=== PATIENT | female | born 1950 | race Caucasian/White ===

== ENCOUNTER 2020-01-01 08:46 | Day surgery (SDC) | payer MEDICARE, OTHER ==
[~2020-01-01 08:46] MED LIST: CHONDR SU A NA/HYALUR INTRAOC KIT (SURGICARE) ONE; DORZOLAMIDE HCL 2%/TIMOLOL MALEAT 0.5% OPH SOLN 10 ML OS PRN; EPINEPHRINE INJ/PF 1 MG/1 ML AMPULE ONE; KETOROLAC TROMETHAMINE 0.45% 4 DROP/0.4 ML DROPERETTE OS PRN; LIDOCAINE 1%/PHENYLEPHRINE 1.5% 1 ML VIAL ONE; PREDNISOLONE ACETATE 1% OPH SUSP 5 ML OS PRN
[2020-01-01] MEDS: TETRACAINE HCL 0.5% OPH SOLN 4 ML OS PRN ×3 (09:04→09:29)
[2020-01-01] MEDS: TROPICAMIDE 1% OPH SOLN 15 ML OS PRN ×3 (09:05→09:24)
[2020-01-01] MEDS: CYCLOPENTOLATE 0.2%/PHENYLEPHRINE 1% OPH SOLN 2 ML OS PRN ×3 (09:05→09:24)
[2020-01-01] MEDS: BESIFLOXACIN HCL 0.6% OPH SUSP 5 ML BOTTLE OS PRN ×3 (09:05→09:47)
[2020-01-01] MEDS ORDERED: FENTANYL CITRATE INJ/PF 100 MCG/2 ML AMPUL ONE (09:13)
[2020-01-01] MEDS ORDERED: MIDAZOLAM 2 MG/2 ML INJ ONE (09:13)
--- NOTE | 2020-01-01 13:40 | Operative Report ---
Operative Report-[facility] Operative Report: DATE OF SURGERY: January 01, 2020 PREOPERATIVE DIAGNOSIS: NUCLEAR CATARACT, LEFT EYE. POSTOPERATIVE DIAGNOSIS: NUCLEAR CATARACT, LEFT EYE. PROCEDURE PERFORMED: PHACOEMULSIFICATION WITH POSTERIOR CHAMBER INTRAOCULAR LENS IMPLANT, LEFT EYE. SURGEON: Lincoln Nava DO MEDICATIONS AND ANESTHESIA: Versed: IV Versed Tetracaine drops: 1 to 2 drops given as needed COMPLICATION: None INDICATIONS FOR SURGERY: Medical necessity: Best corrected visual acuity worse than 20/40 secondary to cataracts with impairment of ability to carry out needs or desired activities, blurred vision, visual distortion, reduced contrast sensitivity and/or glare with association functional impairment and supporting documentation/testing, and cataracts causing symptomatic impairment of visual functions not corrected with tolerable changes in glasses or contact lenses interfering with activities of daily life. PROCEDURE: Consent: The risks, benefits and alternatives of this procedures was discussed with the patient. The patient read and signed the consent forms, was identified and was seated in the exam chair. IOL: ZXR00 22.5 IOL Diopters: Phacoemulsification with posterior chamber intraocular lens implant: The face was prepped with 5% povidone iodine solution, and a few drops of 5% povidone iodine solution was instilled into the inferior fornix. A non-fenestrated drape was placed over the eye and the lids were parted with the speculum. A paracentesis was made with a 15 degree blade, and 1% lidocaine MPF followed by viscoelastic was injected into the anterior chamber. A 2.4 mm metal micro- keratome was used to create a temporal clear corneal incision. A circular anterior capsulorrhexis was created, followed by hydro-dissection and hydro- delineation. The phacoemulsification hand piece was inserted and the nucleus was removed with the Phaco chop technique. The irrigation-aspiration hand piece was used to remove the residual cortex, and vacuum the posterior capsule. The capsular bag was inflated and viscoelastic and the above-mentioned IOL was injected into the eye with care to insert both leaning and trailing haptics in the capsular bag. The irrigation/aspiration hand piece was reinserted to remove residual viscoelastic from the capsular bag and anterior chamber. The corneal incision was hydrated, and anterior chamber was inflated with sterile BSS via the paracentesis site, and found to be watertight. Postop medication:1 drop of prednisolone into operative by followed by 1 drop of Cosopt into operative eye followed by 1 drop of Besivance intraoperative by Other:
== END 2020-01-01 10:25 | disposition home or self-care (01) ==
LOC: SC 08:46
PROVIDERS: ATTEND Ophthalmology
DX: H25.12 Age-related nuclear cataract, left eye (principal); Z87.891 Personal history of nicotine dependence
CPT/HCPCS: 66984; J2250; J3490 ×2; A9270; J0171; J3010; V2788

== ENCOUNTER 2020-01-15 06:28 | Day surgery (SDC) | payer MEDICARE, OTHER ==
[~2020-01-15 06:28] MED LIST changes: -CHONDR SU A NA/HYALUR INTRAOC KIT (SURGICARE) ONE; -DORZOLAMIDE HCL 2%/TIMOLOL MALEAT 0.5% OPH SOLN 10 ML OS PRN; -EPINEPHRINE INJ/PF 1 MG/1 ML AMPULE ONE; +KETOROLAC TROMETHAMINE 0.45% 4 DROP/0.4 ML DROPERETTE OD PRN; -KETOROLAC TROMETHAMINE 0.45% 4 DROP/0.4 ML DROPERETTE OS PRN; -LIDOCAINE 1%/PHENYLEPHRINE 1.5% 1 ML VIAL ONE; -PREDNISOLONE ACETATE 1% OPH SUSP 5 ML OS PRN
[2020-01-15] MEDS: TETRACAINE HCL 0.5% OPH SOLN 4 ML OD PRN ×4 (06:55→07:44)
[2020-01-15] MEDS: TROPICAMIDE 1% OPH SOLN 15 ML OD PRN ×3 (06:55→07:20)
[2020-01-15] MEDS: BESIFLOXACIN HCL 0.6% OPH SUSP 5 ML BOTTLE OD PRN ×4 (06:55→08:05)
[2020-01-15] MEDS: CYCLOPENTOLATE 0.2%/PHENYLEPHRINE 1% OPH SOLN 2 ML OD PRN ×3 (06:55→07:20)
[2020-01-15] MEDS ORDERED: ONDANSETRON HCL INJ/PF 4 MG/2 ML SDV ONE (07:08)
[2020-01-15] MEDS ORDERED: FENTANYL CITRATE INJ/PF 100 MCG/2 ML AMPUL ONE (07:09)
[2020-01-15] MEDS ORDERED: MIDAZOLAM 2 MG/2 ML INJ ONE (07:09)
[2020-01-15] MEDS: LIDOCAINE 1%/PHENYLEPHRINE 1.5% 1 ML VIAL ONE ×2 (07:55)
[2020-01-15] MEDS: CHONDR SU A NA/HYALUR INTRAOC KIT (SURGICARE) ONE ×2 (07:55)
[2020-01-15] MEDS: EPINEPHRINE INJ/PF 1 MG/1 ML AMPULE ONE ×2 (07:55)
[2020-01-15] MEDS: DORZOLAMIDE HCL 2%/TIMOLOL MALEAT 0.5% OPH SOLN 10 ML OD PRN ×2 (08:05)
[2020-01-15] MEDS: PREDNISOLONE ACETATE 1% OPH SUSP 5 ML OD PRN ×2 (08:05)
--- NOTE | 2020-01-15 10:59 | Operative Report ---
Operative Report-[facility] Operative Report: DATE OF SURGERY: January 15, 2020 PREOPERATIVE DIAGNOSIS: NUCLEAR CATARACT, RIGHT EYE. POSTOPERATIVE DIAGNOSIS: NUCLEAR CATARACT, RIGHT EYE. PROCEDURE PERFORMED: PHACOEMULSIFICATION WITH POSTERIOR CHAMBER INTRAOCULAR LENS IMPLANT, RIGHT EYE. SURGEON: Lincoln Nava DO MEDICATIONS AND ANESTHESIA: Versed: IV Versed Tetracaine drops: 1 to 2 drops given as needed COMPLICATION: None INDICATIONS FOR SURGERY: Medical necessity: Best corrected visual acuity worse than 20/40 secondary to cataracts with impairment of ability to carry out needs or desired activities, blurred vision, visual distortion, reduced contrast sensitivity and/or glare with association functional impairment and supporting documentation/testing, and cataracts causing symptomatic impairment of visual functions not corrected with tolerable changes in glasses or contact lenses interfering with activities of daily life. PROCEDURE: Consent: The risks, benefits and alternatives of this procedures was discussed with the patient. The patient read and signed the consent forms, was identified and was seated in the exam chair. IOL: ZXR00 21.5 IOL Diopters: Phacoemulsification with posterior chamber intraocular lens implant: The face was prepped with 5% povidone iodine solution, and a few drops of 5% povidone iodine solution was instilled into the inferior fornix. A non-fenestrated drape was placed over the eye and the lids were parted with the speculum. A paracentesis was made with a 15 degree blade, and 1% lidocaine MPF followed by viscoelastic was injected into the anterior chamber. A 2.4 mm metal micro- keratome was used to create a temporal clear corneal incision. A circular anterior capsulorrhexis was created, followed by hydro-dissection and hydro- delineation. The phacoemulsification hand piece was inserted and the nucleus was removed with the Phaco chop technique. The irrigation-aspiration hand piece was used to remove the residual cortex, and vacuum the posterior capsule. The capsular bag was inflated and viscoelastic and the above-mentioned IOL was injected into the eye with care to insert both leaning and trailing haptics in the capsular bag. The irrigation/aspiration hand piece was reinserted to remove residual viscoelastic from the capsular bag and anterior chamber. The corneal incision was hydrated, and anterior chamber was inflated with sterile BSS via the paracentesis site, and found to be watertight. Postop medication: 1 drop of prednisolone into operative by followed by 1 drop of Cosopt into operative eye followed by 1 drop of Besivance intraoperative by other:
--- OUTSIDE RECORDS SUMMARY | 2020-01-16 17:52 | XMS REPORT ---
:1950 [facility] [id number] [place] [address] Care Team Providers Name Role Phone Bridgette Soni Primary Care Physician Unavailable Radha BERGERON, FACC, FHRS Attending Clinician Unavailable GYPSY Soni Attending Clinician Unavailable Allergies, Adverse Reactions, Alerts Allergy Name Allergy Status Severity Reaction(s) Onset Inactive Treat ing Comments Type Date Date Clinician Penicillins Penicillins Active Sulfa Drugs Sulfa Drugs Active Sulfa Drug Active Antibiotics Allergy Penicillin Drug Active Allergy Medications Ordered Filled Start Stop Current Ordering Indication Dosage Frequency Signature Comments Components Medication Medication Date Date Medication? Clinician (SIG) Name Name Administer Yes .5ml Administer 0.5 ml 7-22 0.5 ml intramuscul 00:00: intramuscu juan one 00 larly one time time ALPRAZolam 0 Yes .5 ALPRAZolam 0.5 MG Oral 4-26 0.5 MG Tablet 00:00: Oral 00 Tablet TAKE 0.5 TABLET Other NEEDED Refills: 0 Start : 9Active Levothyroxi 2018-0 Yes 1 QD Levothyrox ne Sodium 4-22 ine Sodium 50 MCG Oral 00:00: 50 MCG Tablet 00 Oral Tablet TAKE 1 TABLET DAILY. Refills: 0 Start : 9Active Advil 200 2019-0 Yes 1 Q0.5D Advil 200 MG Oral 4-22 MG Oral Capsule 00:00: Capsule 00 TAKE 1 CAPSULE TWICE DAILY NEEDED FOR PAIN Refills: 0 Start : 9Active Liothyronin 2018-0 Yes 1 Q0.5D Liothyroni e Sodium 25 4-22 ne Sodium MCG Oral 00:00: 25 MCG Tablet 00 Oral Tablet TAKE 1 TABLET TWICE DAILY Refills: 0 Start : 9Active Flecainide 2018-0 Yes Cele Q12H Flecainide Acetate 100 4-15 Radha BERGERON, Acetate MG Oral 00:00: ABDIRAHMAN SANTANA 100 MG Tablet 00 Oral Tablet TAKE 1 TABLET EVERY 12 HOURS DAILY. Quantity: 180 Refills: 3 Radha BERGERON, MAX, CAROCele Start : 9Active Administer Yes .5ml Administer 0.5 ml 4-10 0.5 ml intramuscul 00:00: intramuscu juan one 00 larly one time at 0 time at 0 and 3 and 3 months months Administer Yes Administer 0.65mL 2-12 0.65mL vaccine 00:00: vaccine subcutaneou 00 subcutaneo sly one usly one time. time. Administer Yes .5ml Administer 0.5 ml 2-12 0.5 ml intramuscul 00:00: intramuscu juan one 00 larly one time time Insert 1 Yes Insert 1 gm. 9-13 gm. vaginally 00:00: vaginally qhs for 2 00 qhs for 2 weeks, then weeks, 1/2 - 1 gm. then 1/2 - 2 times 1 gm. 2 weekly or times as needed. weekly or as needed. administer Yes administer 0.65mL 9-08 0.65mL subcutaneou 00:00: subcutaneo sly one 00 usly one time time Ibuprofen Yes 200 MG Oral 9-08 Tablet 00:00: 00 TAKE 1 Yes Tablet TAKE 1 TABLET BY 5-23 TABLET BY MOUTH TWICE 00:00: MOUTH A DAY 00 TWICE A DAY TAKE 1 Yes Tablet TAKE 1 TABLET BY 5-23 TABLET BY MOUTH EVERY 00:00: MOUTH DAY 00 EVERY DAY Liothyronin 2014-03 Yes e Sodium 25 0-26 MCG Oral 00:00: Tablet 00 Levothyroxi 2014-03 Yes ne Sodium 0-26 50 MCG Oral 00:00: Tablet 00 Xanax 0.5 2014-03 Yes MG Oral 0-26 Tablet 00:00: 00 Problems Condition Condition Condition Status Onset Resolution Last Treatin g Comments Name Details Category Date Date Treatment Clinician Date Osteopenia Osteopenia Problem Active 7-22 00:00: 00 Other Other Problem Active specified specified 4-10 anxiety anxiety 00:00: disorders disorders 00 Unspecified Unspecified Problem Active atrial atrial 4-10 fibrillatio fibrillatio 00:00: n n 00 Elevated Elevated Problem Active Liver Liver 3-19 function function 00:00: test test 00 Encounter Encounter Problem Active for general for general 2-12 adult adult 00:00: medical medical 00 examination examination without without abnormal abnormal findings findings Encounter Encounter Problem Active for for 2-12 screening screening 00:00: for lipoid for lipoid 00 disorders disorders Abnormal Abnormal Problem Active results of results of 11-16 thyroid thyroid 00:00: function function 00 studies studies Hypothyroid Hypothyroid Problem Active ism, ism, 11-11 unspecified unspecified 00:00: 00 Vitamin D Vitamin D Problem Active deficiency, deficiency, 11-11 unspecified unspecified 00:00: 00 medicare medicare Problem Active wellness wellness 11-11 00:00: 00 Other Other Problem Active specified specified 11-11 disorders disorders 00:00: of bone of bone 00 density and density and structure, structure, unspecified unspecified site site adult adult Problem Active physical physical 11-11 00:00: 00 Decreased Decreased Problem Active 2014-03 white blood white blood 0-28 cell count, cell count, 00:00: unspecified unspecified 00 hypothyroid hypothyroid Problem Active 2014-03 0 00:00: 00 Other Other Problem Active 2014-03 specified specified 0-28 disorders disorders 00:00: of bone of bone 00 density and density and structure, structure, unspecified unspecified site site adult adult Problem Active 2014-03 physical physical 0-28 00:00: 00 screen screen Problem Active 2014-03 cholesterol cholesterol 0-28 00:00: 00 screen screen Problem Active 2014-03 glucose glucose 0-28 00:00: 00 hypothyroid hypothyroid Problem Active 2014-03 ism ism 0-26 00:00: 00 situational situational Problem Active 2014-03 anxiety anxiety 0- 00:00: 00 Typical Typical Problem Active atrial atrial flutter flutter A-fib A-fib Problem Active Persistent Persistent Problem Active atrial atrial fibrillatio fibrillatio n n Atrial Atrial Problem Active flutter flutter Procedures Procedure Date / Time Performed Performing Clinician Devic e EKG 2019-12-25 00:00:00 bone density 2019-10-18 00:00:00 established, preventive 2019-09-25 00:00:00 GYPSY Soni Joanne medicare wellness 2019-09-25 00:00:00 GYPSY Soni Joanne annual depression evaluation 2019-09-25 00:00:00 GYPSY Soni Jo anne advanced planning 2019-09-25 00:00:00 GYPSY Soni Joanne urine reagent strip 2019-09-25 00:00:00 ANTHONY SoniN, Bridgette venipuncture 2019-09-25 00:00:00 GYPSY Soni Joanne established preventive 2018-06-13 00:00:00 GYPSY Soni Joanne medicare wellness 2018-06-13 00:00:00 GYPSY Soni, Bridgette annual depression evaluation 2018-06-13 00:00:00 GYPSY Soni Jo anne urine reagent 2018-06-13 00:00:00 GYPSY Soni Joanne EKG/interpretation 2018-06-13 00:00:00 GYPSY Soni Joanne venipuncture 2018-06-13 00:00:00 GYPSY Soni Joanne venipuncture 2017-05-22 00:00:00 GYPSY Soni Joanne established, preventive 2017-04-17 00:00:00 GYPSY Soni Joanne medicare wellness 2017-04-17 00:00:00 GYPSY Soni Joanne urine dipstick 2017-04-17 00:00:00 GYPSY Soni Joanne established, low 2015-11-17 00:00:00 NaeGYPSY rubio Joanne venipuncture 2015-11-17 00:00:00 GYPSY Soni Joanne established, preventive 2015-11-12 00:00:00 NaeGYPSY rubio Joanne medicare annual wellness 2015-11-12 00:00:00 GYPSY Soni Joanne urine dipstick 2015-11-12 00:00:00 GYPSY Soni Joanne pap, medicare 2015-11-12 00:00:00 NaeGYPSY rubio Joanne venipuncture 2015-11-12 00:00:00 GYPSY Soni Joanne venipuncture 2014-12-31 00:00:00 GYPSY Soni Joanne new, straightforward 2014-12-29 00:00:00 GYPSY Soni Joanne History of Cardiac catheterization History of Cardioversion History of Tonsillectomy with adenoidectomy History of Open reduction-internal fixation Results Test Description Test Time Test Comments Text Results Atomic Results Result Comments Albumin 2019-09-25 00:00:00 Test Item Value Reference Range Comments Albumin (test code = 1751-7) 4.3 g/dL Vkljhxcv0325-26-24 00:00:00 Test Item Value Reference Range Comments Globulin (test code = 64736-5) 2.3 g/dL Otxzsaxdt0006-30-34 00:00:00 Test Item Value Reference Range Comments Bilirubin (test code = 1975-2) 0.4 mg/dL Albumin/Qbbcvmqw7183-06-98 00:00:00 Test Item Value Reference Range Comments Albumin/Globulin (test code = 1759-0) 1.9 Pcnzlnm6192-13-26 00:00:00 Test Item Value Reference Range Comments Calcium (test code = 12608-0) 9.3 mg/dL Dvciipk1164-57-28 00:00:00 Test Item Value Reference Range Comments Protein (test code = 2885-2) 6.6 g/dL Wpjlautq4396-58-13 00:00:00 Test Item Value Reference Range Comments Chloride (test code = 2075-0) 101 mmol/L Carbon swfcdyp2459-28-50 00:00:00 Test Item Value Reference Range Comments Carbon dioxide (test code = 2028-9) 26 mmol/L Jqamxo3276-51-41 00:00:00 Test Item Value Reference Range Comments Sodium (test code = 2951-2) 142 mmol/L Ajznbjwrl2068-58-46 00:00:00 Test Item Value Reference Range Comments Potassium (test code = 2823-3) 4.8 mmol/L Ltmlxkjtxpp8079-50-33 00:00:00 Test Item Value Reference Range Comments Cholesterol (test code = 2093-3) 199 mg/dL Alanine czdltcrzpksnrcun0725-42-19 00:00:00 Test Item Value Reference Range Comments Alanine aminotransferase (test code = 1742-6) 20 IU/L Alkaline gstuawctuqp8455-94-25 00:00:00 Test Item Value Reference Range Comments Alkaline phosphatase (test code = 6768-6) 93 IU/L Aspartate mahbgkbnylakebst6416-85-66 00:00:00 Test Item Value Reference Range Comments Aspartate aminotransferase (test code = 1920-8) 21 IU/L Cholesterol.total/Cholesterol.in CYG5377-83-73 00:00:00 Test Item Value Reference Range Comments Cholesterol.total/Cholesterol.in HDL (test code = 2.2 ratio 9830-1) Cholesterol.in DPIL1698-94-77 00:00:00 Test Item Value Reference Range Comments Cholesterol.in VLDL (test code = 50967-0) 10 mg/dL Cholesterol.in CVB2643-45-22 00:00:00 Test Item Value Reference Range Comments Cholesterol.in LDL (test code = 35418-7) 97 mg/dL Vlbqzeehbdtx6883-90-61 00:00:00 Test Item Value Reference Range Comments Triglyceride (test code = 2571-8) 50 mg/dL Cholesterol.in BEQ6949-46-75 00:00:00 Test Item Value Reference Range Comments Cholesterol.in HDL (test code = 2085-9) 92 mg/dL Triiodothyronine.wxcb8094-85-01 00:00:00 Test Item Value Reference Range Comments Triiodothyronine.free (test code = 3051-0) 2.9 pg/mL Gamma glutamyl rwnfnxeloax5180-13-50 00:00:00 Test Item Value Reference Range Comments Gamma glutamyl transferase (test code = 2324-2) 12 IU/L Dutwjmjhhkt5518-01-35 00:00:00 Test Item Value Reference Range Comments Thyrotropin (test code = 66047-1) Thyrotropin Thyroxine.mulh5831-47-29 00:00:00 Test Item Value Reference Range Comments Thyroxine.free (test code = 3024-7) 0.65 ng/dL Granulocytes.immature/100 tinuxydvph0545-62-08 00:00:00 Test Item Value Reference Range Comments Granulocytes.immature/100 leukocytes (test code = 0 % 50971-7) Granulocytes.rthiumye6957-42-16 00:00:00 Test Item Value Reference Range Comments Granulocytes.immature (test code = 17062-5) 0.0 x10E3/uL Xpnpilc6641-97-07 00:00:00 Test Item Value Reference Range Comments Glucose (test code = 2345-7) 94 mg/dL Urea hlmqtill0511-27-37 00:00:00 Test Item Value Reference Range Comments Urea nitrogen (test code = 3094-0) 21 mg/dL Zteproebrj6650-44-53 00:00:00 Test Item Value Reference Range Comments Creatinine (test code = 2160-0) 0.61 mg/dL Glomerular filtration rate/1.73 sq M.predicted.tac8393-26-99 00:00:00 Test Item Value Reference Range Comments Glomerular filtration rate/1.73 sq 92 mL/min/1.73 M.predicted.non (test code = 54455-9) Glomerular filtration rate/1.73 sq M.predicted.nkn3503-80-98 00:00:00 Test Item Value Reference Range Comments Glomerular filtration rate/1.73 sq 106 mL/min/1.73 M.predicted.danielle (test code = 01049-9) Urea nitrogen/Pammzvhqhu1194-98-67 00:00:00 Test Item Value Reference Range Comments Urea nitrogen/Creatinine (test code = 3097-3) 34 Cgqatrswcog0383-66-24 00:00:00 Test Item Value Reference Range Comments Lymphocytes (test code = 731-0) 1.5 x10E3/uL Vrgjzcknj7321-95-58 00:00:00 Test Item Value Reference Range Comments Monocytes (test code = 742-7) 0.5 x10E3/uL Nabegibkanx4578-14-91 00:00:00 Test Item Value Reference Range Comments Eosinophils (test code = 711-2) 0.2 x10E3/uL Egwmsutuo7636-43-17 00:00:00 Test Item Value Reference Range Comments Basophils (test code = 704-7) 0.0 x10E3/uL Monocytes/100 zhrfsyugbn1183-38-78 00:00:00 Test Item Value Reference Range Comments Monocytes/100 leukocytes (test code = 5905-5) 10 % Eosinophils/100 rnsmamumtk0909-33-18 00:00:00 Test Item Value Reference Range Comments Eosinophils/100 leukocytes (test code = 713-8) 4 % Basophils/100 ceslvqpnbp7058-86-72 00:00:00 Test Item Value Reference Range Comments Basophils/100 leukocytes (test code = 706-2) 1 % Odfnnypagqx3413-33-98 00:00:00 Test Item Value Reference Range Comments Neutrophils (test code = 751-8) 2.7 x10E3/uL Jahsyjnicp6438-34-46 00:00:00 Test Item Value Reference Range Comments Hematocrit (test code = 4544-3) 39.3 % Erythrocyte mean corpuscular fqjvos6249-84-46 00:00:00 Test Item Value Reference Range Comments Erythrocyte mean corpuscular volume (test code = 91 fL 787-2) Yufrcyoxje6001-65-16 00:00:00 Test Item Value Reference Range Comments Leukocytes (test code = 6690-2) 4.9 x10E3/uL Zfmnyfftfxse9670-08-59 00:00:00 Test Item Value Reference Range Comments Erythrocytes (test code = 789-8) 4.32 x10E6/uL Uyeeljctyo1512-73-76 00:00:00 Test Item Value Reference Range Comments Hemoglobin (test code = 718-7) 13.2 g/dL Neutrophils/100 brnppenuol3375-59-87 00:00:00 Test Item Value Reference Range Comments Neutrophils/100 leukocytes (test code = 770-8) 54 % Lymphocytes/100 xwhgipmbft6687-30-26 00:00:00 Test Item Value Reference Range Comments Lymphocytes/100 leukocytes (test code = 736-9) 31 % Erythrocyte distribution qlcsw2432-28-15 00:00:00 Test Item Value Reference Range Comments Erythrocyte distribution width (test code = 788-0) 11.5 % Aedrgnlcn9391-59-80 00:00:00 Test Item Value Reference Range Comments Platelets (test code = 777-3) 197 x10E3/uL Erythrocyte mean corpuscular shjpszbhad9080-49-59 00:00:00 Test Item Value Reference Range Comments Erythrocyte mean corpuscular hemoglobin (test code = 30.6 pg 785-6) Erythrocyte mean corpuscular hemoglobin vgvrqeysek9077-31-20 00:00:00 Test Item Value Reference Range Comments Erythrocyte mean corpuscular hemoglobin concentrat 33.6 g/dL (test code = 786-4) Sndnmmdfj2051-39-15 00:00:00 Test Item Value Reference Range Comments Prolactin (test code = 2842-3) 11.5 ng/mL Qmkjreqer8743-34-19 00:00:00 Test Item Value Reference Range Comments Potassium (test code = 2823-3) 4.7 mmol/L Nymfnm2610-94-90 00:00:00 Test Item Value Reference Range Comments Sodium (test code = 2951-2) 142 mmol/L Bcyexois4059-45-91 00:00:00 Test Item Value Reference Range Comments Chloride (test code = 2075-0) 103 mmol/L Carbon ffhvagq7428-55-80 00:00:00 Test Item Value Reference Range Comments Carbon dioxide (test code = 2028-9) 23 mmol/L Albumin/Rabmydlh1209-46-76 00:00:00 Test Item Value Reference Range Comments Albumin/Globulin (test code = 1759-0) 1.8 Dixgrvyuu0704-61-69 00:00:00 Test Item Value Reference Range Comments Bilirubin (test code = 1975-2) 0.6 mg/dL Emuoisn6958-96-42 00:00:00 Test Item Value Reference Range Comments Albumin (test code = 1751-7) 4.2 g/dL Dtlrzxvs8718-05-57 00:00:00 Test Item Value Reference Range Comments Globulin (test code = 27227-3) 2.3 g/dL Rtihmpo4857-52-61 00:00:00 Test Item Value Reference Range Comments Calcium (test code = 63445-4) 9.3 mg/dL Tmhegwu7313-96-73 00:00:00 Test Item Value Reference Range Comments Protein (test code = 2885-2) 6.5 g/dL Urea nitrogen/Kipdzgrdyt3591-89-29 00:00:00 Test Item Value Reference Range Comments Urea nitrogen/Creatinine (test code = 3097-3) 20 Glomerular filtration rate/1.73 sq M.predicted.fnm1024-53-55 00:00:00 Test Item Value Reference Range Comments Glomerular filtration rate/1.73 sq 89 mL/min/1.73 M.predicted.non (test code = 47154-9) Glomerular filtration rate/1.73 sq M.predicted.cru0400-62-42 00:00:00 Test Item Value Reference Range Comments Glomerular filtration rate/1.73 sq 103 mL/min/1.73 M.predicted.danielle (test code = 09620-7) Zmluqwc2280-89-19 00:00:00 Test Item Value Reference Range Comments Glucose (test code = 2345-7) 97 mg/dL Urea jilernnk0758-35-21 00:00:00 Test Item Value Reference Range Comments Urea nitrogen (test code = 3094-0) 14 mg/dL Debkqxluzd2936-48-04 00:00:00 Test Item Value Reference Range Comments Creatinine (test code = 2160-0) 0.70 mg/dL Alkaline xllwykxemnt7118-70-02 00:00:00 Test Item Value Reference Range Comments Alkaline phosphatase (test code = 6768-6) 70 IU/L Aspartate inddesqknsgunujz4560-72-27 00:00:00 Test Item Value Reference Range Comments Aspartate aminotransferase (test code = 1920-8) 27 IU/L Alanine ynmytohepfpvvymu3197-06-95 00:00:00 Test Item Value Reference Range Comments Alanine aminotransferase (test code = 1742-6) 18 IU/L Hepatitis C virus Ab Signal/Qxcswt6398-30-11 00:00:00 Test Item Value Reference Range Comments Hepatitis C virus Ab Hepatitis C virus Ab Signal/Cutoff (test code = Signal/Cutoff 70221-2) Hepatitis A virus Ab.QgR8316-61-66 00:00:00 Test Item Value Reference Range Comments Hepatitis A virus Ab.IgM (test code Hepatitis A virus Ab.IgM = 51749-7) Hepatitis B virus surface Fb2923-29-73 00:00:00 Test Item Value Reference Range Comments Hepatitis B virus surface Ag Hepatitis B virus surface Ag (test code = 5196-1) Hepatitis B virus core Ab.PiN7900-63-46 00:00:00 Test Item Value Reference Range Comments Hepatitis B virus core Ab.IgM Hepatitis B virus core Ab.IgM (test code = 79990-6) Cujsstjckgc6123-85-57 00:00:00 Test Item Value Reference Range Comments Thyrotropin (test code = 14183-8) Thyrotropin Thyroxine.rigm0105-62-84 00:00:00 Test Item Value Reference Range Comments Thyroxine.free (test code = 3024-7) 0.43 ng/dL Triiodothyronine.qxej9515-47-76 00:00:00 Test Item Value Reference Range Comments Triiodothyronine.free (test code = 3051-0) 3.0 pg/mL 25-Hydroxyvitamin D2+25-Hydroxyvitamin U61217-79-29 00:00:00 Test Item Value Reference Range Comments 25-Hydroxyvitamin D2+25-Hydroxyvitamin D3 (test 47.3 ng/mL code = 40987-9) Faaicxb3642-10-29 00:00:00 Test Item Value Reference Range Comments Protein (test code = 2885-2) 6.6 g/dL Lnvbbpm3492-23-96 00:00:00 Test Item Value Reference Range Comments Albumin (test code = 1751-7) 4.3 g/dL Kakfpmkfp3204-31-69 00:00:00 Test Item Value Reference Range Comments Bilirubin (test code = 1975-2) 0.5 mg/dL Bilirubin.glucuronidated+Bilirubin.albumin qkcgu0562-62-46 00:00:00 Test Item Value Reference Range Comments Bilirubin.glucuronidated+Bilirubin.albumin bound 0.19 mg/dL (test code = 1968-7) Alkaline mdibqshqxbu8153-57-47 00:00:00 Test Item Value Reference Range Comments Alkaline phosphatase (test code = 6768-6) 78 IU/L Aspartate vkwgmxbbyfwcbhbv2687-71-26 00:00:00 Test Item Value Reference Range Comments Aspartate aminotransferase (test code = 1920-8) 74 IU/L Alanine tiqybvbhnobfuxws5633-20-78 00:00:00 Test Item Value Reference Range Comments Alanine aminotransferase (test code = 1742-6) 69 IU/L Tjyzjkottz6267-43-76 00:00:00 Test Item Value Reference Range Comments Leukocytes (test code = 6690-2) 5.4 x10E3/uL Ammwjiljpirq2074-89-77 00:00:00 Test Item Value Reference Range Comments Erythrocytes (test code = 789-8) 4.56 x10E6/uL Ywiggwwckm7842-17-49 00:00:00 Test Item Value Reference Range Comments Hemoglobin (test code = 718-7) 13.5 g/dL Erythrocyte mean corpuscular tylsxn3489-00-87 00:00:00 Test Item Value Reference Range Comments Erythrocyte mean corpuscular volume (test code = 89 fL 787-2) Erythrocyte mean corpuscular tkdwedeqlu5318-71-42 00:00:00 Test Item Value Reference Range Comments Erythrocyte mean corpuscular hemoglobin (test code = 29.6 pg 785-6) Tvvwbfjcgp8739-06-10 00:00:00 Test Item Value Reference Range Comments Hematocrit (test code = 4544-3) 40.5 % Monocytes/100 uhbezsbggu0309-47-62 00:00:00 Test Item Value Reference Range Comments Monocytes/100 leukocytes (test code = 5905-5) 11 % Lymphocytes/100 hvgzqyrngq4190-70-57 00:00:00 Test Item Value Reference Range Comments Lymphocytes/100 leukocytes (test code = 736-9) 32 % Eosinophils/100 iupxyzmzxn6020-60-36 00:00:00 Test Item Value Reference Range Comments Eosinophils/100 leukocytes (test code = 713-8) 3 % Qrxiggqeraa2983-96-19 00:00:00 Test Item Value Reference Range Comments Neutrophils (test code = 751-8) 2.9 x10E3/uL Neutrophils/100 ibneckesjn0563-90-19 00:00:00 Test Item Value Reference Range Comments Neutrophils/100 leukocytes (test code = 770-8) 53 % Erythrocyte distribution feyqi9574-98-92 00:00:00 Test Item Value Reference Range Comments Erythrocyte distribution width (test code = 788-0) 13.6 % Weyfbnzsd1794-44-90 00:00:00 Test Item Value Reference Range Comments Platelets (test code = 777-3) 194 x10E3/uL Erythrocyte mean corpuscular hemoglobin dqfhozetqu3211-90-57 00:00:00 Test Item Value Reference Range Comments Erythrocyte mean corpuscular hemoglobin concentrat 33.3 g/dL (test code = 786-4) Granulocytes.immature/100 hwfoakclrn8003-83-92 00:00:00 Test Item Value Reference Range Comments Granulocytes.immature/100 leukocytes (test code = 0 % 35870-7) Qcoomxzytzm8304-03-34 00:00:00 Test Item Value Reference Range Comments Eosinophils (test code = 711-2) 0.2 x10E3/uL Vtmrxqziu8214-42-23 00:00:00 Test Item Value Reference Range Comments Basophils (test code = 704-7) 0.0 x10E3/uL Zhrnwqcxuho5583-19-99 00:00:00 Test Item Value Reference Range Comments Lymphocytes (test code = 731-0) 1.7 x10E3/uL Basophils/100 tlccifvrbs4193-20-28 00:00:00 Test Item Value Reference Range Comments Basophils/100 leukocytes (test code = 706-2) 1 % Mdulvysry0210-18-16 00:00:00 Test Item Value Reference Range Comments Monocytes (test code = 742-7) 0.6 x10E3/uL Scohbft6577-50-68 00:00:00 Test Item Value Reference Range Comments Glucose (test code = 2345-7) 90 mg/dL Granulocytes.ezwoeerz6815-14-73 00:00:00 Test Item Value Reference Range Comments Granulocytes.immature (test code = 27367-8) 0.0 x10E3/uL Urea dzhbtuta3259-43-80 00:00:00 Test Item Value Reference Range Comments Urea nitrogen (test code = 3094-0) 30 mg/dL Ejkjpffzzv4173-23-06 00:00:00 Test Item Value Reference Range Comments Creatinine (test code = 2160-0) 0.60 mg/dL Glomerular filtration rate/1.73 sq M.hmbbsubji6601-01-33 00:00:00 Test Item Value Reference Range Comments Glomerular filtration rate/1.73 sq 109 mL/min/1.73 M.predicted (test code = 68084-8) Urea nitrogen/Jcpvionfet6656-20-32 00:00:00 Test Item Value Reference Range Comments Urea nitrogen/Creatinine (test code = 3097-3) 50 Myzlid7133-39-67 00:00:00 Test Item Value Reference Range Comments Sodium (test code = 2951-2) 141 mmol/L Plbapaaik4553-99-43 00:00:00 Test Item Value Reference Range Comments Potassium (test code = 2823-3) 5.1 mmol/L Ulplqzvn0901-66-11 00:00:00 Test Item Value Reference Range Comments Chloride (test code = 2075-0) 102 mmol/L Carbon pemqofb5498-47-89 00:00:00 Test Item Value Reference Range Comments Carbon dioxide (test code = 8-9) 25 mmol/L Yuqwoxi4501-82-05 00:00:00 Test Item Value Reference Range Comments Protein (test code = 2885-2) 6.6 g/dL Ftouldg9704-53-10 00:00:00 Test Item Value Reference Range Comments Albumin (test code = 1751-7) 4.3 g/dL Nqxzqef7171-57-69 00:00:00 Test Item Value Reference Range Comments Calcium (test code = 14375-0) 9.4 mg/dL Ktsikpax3426-67-56 00:00:00 Test Item Value Reference Range Comments Globulin (test code = 18809-5) 2.3 g/dL Albumin/Udzagvrh6797-81-10 00:00:00 Test Item Value Reference Range Comments Albumin/Globulin (test code = 1759-0) 1.9 Jbxnzdcie3258-79-18 00:00:00 Test Item Value Reference Range Comments Bilirubin (test code = 1975-2) 0.5 mg/dL Alkaline esszphsgnvj6517-22-07 00:00:00 Test Item Value Reference Range Comments Alkaline phosphatase (test code = 6768-6) 81 IU/L Aspartate ygyrrdzctnrbmhhb7970-26-91 00:00:00 Test Item Value Reference Range Comments Aspartate aminotransferase (test code = 1920-8) 106 IU/L Alanine sklpwkngxxqyiltr3851-64-19 00:00:00 Test Item Value Reference Range Comments Alanine aminotransferase (test code = 1742-6) 114 IU/L Xgdkmkhlfuf3357-83-22 00:00:00 Test Item Value Reference Range Comments Cholesterol (test code = 2093-3) 198 mg/dL Rketgfvvwvtm8190-09-63 00:00:00 Test Item Value Reference Range Comments Triglyceride (test code = 2571-8) 59 mg/dL Cholesterol.in CZR1745-55-29 00:00:00 Test Item Value Reference Range Comments Cholesterol.in HDL (test code = 2085-9) 89 mg/dL Cholesterol.in EHTO6815-98-70 00:00:00 Test Item Value Reference Range Comments Cholesterol.in VLDL (test code = 44040-5) 12 mg/dL Cholesterol.in LFP2992-26-56 00:00:00 Test Item Value Reference Range Comments Cholesterol.in LDL (test code = 09846-4) 97 mg/dL Dbvhgbntlum0770-98-82 00:00:00 Test Item Value Reference Range Comments Thyrotropin (test code = 67138-1) Thyrotropin Thyroxine.igeo4757-82-70 00:00:00 Test Item Value Reference Range Comments Thyroxine.free (test code = 3024-7) 0.69 ng/dL Triiodothyronine.nkcj9539-03-59 00:00:00 Test Item Value Reference Range Comments Triiodothyronine.free (test code = 3051-0) 3.0 pg/mL 25-Hydroxyvitamin D2+25-Hydroxyvitamin N69231-77-08 00:00:00 Test Item Value Reference Range Comments 25-Hydroxyvitamin D2+25-Hydroxyvitamin D3 (test 23.8 ng/mL code = 43759-3) Gamma glutamyl zybjhdfjtox2489-85-79 00:00:00 Test Item Value Reference Range Comments Gamma glutamyl transferase (test code = 2324-2) 23 IU/L Hepatitis C virus Ab Signal/Djxigd4558-15-18 00:00:00 Test Item Value Reference Range Comments Hepatitis C virus Ab Hepatitis C virus Ab Signal/Cutoff (test code = Signal/Cutoff 15527-4) Hepatitis B virus core Ab.ZsN4466-04-86 00:00:00 Test Item Value Reference Range Comments Hepatitis B virus core Ab.IgM Hepatitis B virus core Ab.IgM (test code = 98663-5) Hepatitis B virus surface Pt1196-67-47 00:00:00 Test Item Value Reference Range Comments Hepatitis B virus surface Ag Hepatitis B virus surface Ag (test code = 5196-1) Hepatitis A virus Ab.WwH9479-04-22 00:00:00 Test Item Value Reference Range Comments Hepatitis A virus Ab.IgM (test code Hepatitis A virus Ab.IgM = 35872-6) Triiodothyronine.jezd3989-18-93 00:00:00 Test Item Value Reference Range Comments Triiodothyronine.free (test code = 3051-0) 2.8 pg/mL Xueouzyuzmunnpla5352-87-15 00:00:00 Test Item Value Reference Range Comments Triiodothyronine (test code = 3053-6) 102 ng/dL Triiodothyronine.ilyg2473-00-44 00:00:00 Test Item Value Reference Range Comments Triiodothyronine.free (test code = 3051-0) 5.7 pg/mL Alanine zrgfvikvrljxinsz9773-61-23 00:00:00 Test Item Value Reference Range Comments Alanine aminotransferase (test code = 1742-6) 16 IU/L Vmqstcplqvg6673-96-03 00:00:00 Test Item Value Reference Range Comments Thyrotropin (test code = 22727-8) 0.005 uIU/mL 25-Hydroxyvitamin D2+25-Hydroxyvitamin G11977-91-78 00:00:00 Test Item Value Reference Range Comments 25-Hydroxyvitamin D2+25-Hydroxyvitamin D3 (test 33.3 ng/mL code = 55844-2) Thyroxine.hzwk0105-13-73 00:00:00 Test Item Value Reference Range Comments Thyroxine.free (test code = 3024-7) 0.66 ng/dL Alkaline pitkoudyuma4090-39-92 00:00:00 Test Item Value Reference Range Comments Alkaline phosphatase (test code = 6768-6) 75 IU/L Aspartate ktkavtdhgzrxhary7509-39-57 00:00:00 Test Item Value Reference Range Comments Aspartate aminotransferase (test code = 1920-8) 19 IU/L Tjhpcoyhb8422-55-53 00:00:00 Test Item Value Reference Range Comments Bilirubin (test code = 1975-2) 0.6 mg/dL Fpjkahm1785-50-91 00:00:00 Test Item Value Reference Range Comments Calcium (test code = 65004-2) 9.1 mg/dL Riryudg1138-04-99 00:00:00 Test Item Value Reference Range Comments Albumin (test code = 1751-7) 4.1 g/dL Albumin/Enycaxmt3873-21-95 00:00:00 Test Item Value Reference Range Comments Albumin/Globulin (test code = 1759-0) 1.9 Gkxvbkwt0417-17-88 00:00:00 Test Item Value Reference Range Comments Globulin (test code = 22637-9) 2.2 g/dL Sbrmjlf2420-61-20 00:00:00 Test Item Value Reference Range Comments Protein (test code = 2885-2) 6.3 g/dL Carbon kjaqnhu0303-96-18 00:00:00 Test Item Value Reference Range Comments Carbon dioxide (test code = 2028-9) 20 mmol/L Xjwzwkkmqy3700-60-58 00:00:00 Test Item Value Reference Range Comments Creatinine (test code = 2160-0) 0.58 mg/dL Glomerular filtration rate/1.73 sq M.predicted.phg8666-82-20 00:00:00 Test Item Value Reference Range Comments Glomerular filtration rate/1.73 sq 111 mL/min/1.73 M.predicted.danielle (test code = 48187-5) Jioodk3849-33-17 00:00:00 Test Item Value Reference Range Comments Sodium (test code = 2951-2) 140 mmol/L Ezldnmom8929-16-59 00:00:00 Test Item Value Reference Range Comments Chloride (test code = 2075-0) 101 mmol/L Plhqgglts2706-37-00 00:00:00 Test Item Value Reference Range Comments Potassium (test code = 2823-3) 4.2 mmol/L Urea nitrogen/Klrjcjxplb6972-43-43 00:00:00 Test Item Value Reference Range Comments Urea nitrogen/Creatinine (test code = 3097-3) 28 Glomerular filtration rate/1.73 sq M.predicted.jcg8814-55-87 00:00:00 Test Item Value Reference Range Comments Glomerular filtration rate/1.73 sq 96 mL/min/1.73 M.predicted.non (test code = 22701-4) Urea jpxfukgp3670-84-49 00:00:00 Test Item Value Reference Range Comments Urea nitrogen (test code = 3094-0) 16 mg/dL Granulocytes.vghvesbb0504-09-12 00:00:00 Test Item Value Reference Range Comments Granulocytes.immature (test code = 57151-4) 0.0 x10E3/uL Zmflkpvwicv1718-72-53 00:00:00 Test Item Value Reference Range Comments Eosinophils (test code = 711-2) 0.1 x10E3/uL Granulocytes.immature/100 xgdvzzqvlz9348-01-31 00:00:00 Test Item Value Reference Range Comments Granulocytes.immature/100 leukocytes (test code = 0 % 81642-6) Qwghkbb7472-23-54 00:00:00 Test Item Value Reference Range Comments Glucose (test code = 2345-7) 85 mg/dL Xofqbwslt6094-81-46 00:00:00 Test Item Value Reference Range Comments Basophils (test code = 704-7) 0.0 x10E3/uL Yhnvqujrqmr4266-88-83 00:00:00 Test Item Value Reference Range Comments Lymphocytes (test code = 731-0) 2.0 x10E3/uL Gqwipsfex3910-25-66 00:00:00 Test Item Value Reference Range Comments Monocytes (test code = 742-7) 0.5 x10E3/uL Basophils/100 ozbbdehhwk2761-79-91 00:00:00 Test Item Value Reference Range Comments Basophils/100 leukocytes (test code = 706-2) 0 % Ivuqrskcbup7738-76-79 00:00:00 Test Item Value Reference Range Comments Neutrophils (test code = 751-8) 3.3 x10E3/uL Eosinophils/100 wulrsiaavw8115-06-14 00:00:00 Test Item Value Reference Range Comments Eosinophils/100 leukocytes (test code = 713-8) 2 % Lymphocytes/100 frrqikjjkf8280-02-07 00:00:00 Test Item Value Reference Range Comments Lymphocytes/100 leukocytes (test code = 736-9) 34 % Neutrophils/100 hxvovucxmn7812-02-70 00:00:00 Test Item Value Reference Range Comments Neutrophils/100 leukocytes (test code = 770-8) 55 % Monocytes/100 qmoqexjvxl9464-72-79 00:00:00 Test Item Value Reference Range Comments Monocytes/100 leukocytes (test code = 5905-5) 9 % Wwposllnp3589-65-24 00:00:00 Test Item Value Reference Range Comments Platelets (test code = 777-3) 180 x10E3/uL Erythrocyte distribution okcpy1510-42-17 00:00:00 Test Item Value Reference Range Comments Erythrocyte distribution width (test code = 788-0) 12.7 % Erythrocyte mean corpuscular hemoglobin phkzixcgbm4062-34-62 00:00:00 Test Item Value Reference Range Comments Erythrocyte mean corpuscular hemoglobin concentrat 32.1 g/dL (test code = 786-4) Erythrocyte mean corpuscular bynvfvlykl8199-20-10 00:00:00 Test Item Value Reference Range Comments Erythrocyte mean corpuscular hemoglobin (test code = 30.0 pg 785-6) Erythrocyte mean corpuscular wmifkf5169-13-43 00:00:00 Test Item Value Reference Range Comments Erythrocyte mean corpuscular volume (test code = 94 fL 787-2) Dtopqyzncxls4259-89-07 00:00:00 Test Item Value Reference Range Comments Erythrocytes (test code = 789-8) 4.13 x10E6/uL Dckjpsrnnw0964-76-07 00:00:00 Test Item Value Reference Range Comments Hematocrit (test code = 4544-3) 38.6 % Pkjndwzpcm1124-34-76 00:00:00 Test Item Value Reference Range Comments Hemoglobin (test code = 718-7) 12.4 g/dL Iibuhllyti9082-96-99 00:00:00 Test Item Value Reference Range Comments Leukocytes (test code = 6690-2) 5.9 x10E3/uL Path report.final frsouaxjz3427-23-71 00:00:00 Test Item Value Reference Range Comments Path report.final diagnosis Path report.final diagnosis (test code = 76239-1) Statement of xxzclwgq8226-52-50 00:00:00 Test Item Value Reference Range Comments Statement of adequacy (test code = Statement of adequacy 49432-1) Diagnosis ICD zydf6833-61-02 00:00:00 Test Item Value Reference Range Comments Diagnosis ICD code (test code = 18261-5) Diagnosis ICD code Lqactngest0392-18-18 00:00:00 Test Item Value Reference Range Comments Grinder Hand (test code = 22820-8) Grinder Hand Microscopic aamsufbzmbj0315-34-29 00:00:00 Test Item Value Reference Range Comments Microscopic observation (test code = Microscopic observation 06325-4) Cytology eeucas2194-25-10 00:00:00 Test Item Value Reference Range Comments Cytology report (test code = 84048-2) Cytology report Olnuhhvote4014-31-76 00:00:00 Test Item Value Reference Range Comments Leukocytes (test code = 6690-2) 4.3 x10E3/uL Roqdgmkvlphh6898-18-29 00:00:00 Test Item Value Reference Range Comments Erythrocytes (test code = 789-8) 4.16 x10E6/uL Xwymxodvzo3118-70-53 00:00:00 Test Item Value Reference Range Comments Hemoglobin (test code = 718-7) 12.1 g/dL Nqgnfqkmrd8581-55-61 00:00:00 Test Item Value Reference Range Comments Hematocrit (test code = 4544-3) 37.7 % Erythrocyte mean corpuscular lvvmud1537-18-23 00:00:00 Test Item Value Reference Range Comments Erythrocyte mean corpuscular volume (test code = 91 fL 787-2) Erythrocyte mean corpuscular zevbtjgjrt6267-21-76 00:00:00 Test Item Value Reference Range Comments Erythrocyte mean corpuscular hemoglobin (test code = 29.1 pg 785-6) Erythrocyte mean corpuscular hemoglobin gnmhqfmjti2885-99-60 00:00:00 Test Item Value Reference Range Comments Erythrocyte mean corpuscular hemoglobin concentrat 32.1 g/dL (test code = 786-4) Erythrocyte distribution sgook6001-05-54 00:00:00 Test Item Value Reference Range Comments Erythrocyte distribution width (test code = 788-0) 12.9 % Krspdbqtr5301-63-78 00:00:00 Test Item Value Reference Range Comments Platelets (test code = 777-3) 200 x10E3/uL Neutrophils/100 qvivvqwlqy0501-37-15 00:00:00 Test Item Value Reference Range Comments Neutrophils/100 leukocytes (test code = 770-8) 37 % Lymphocytes/100 gdhmgkzmfx4664-08-89 00:00:00 Test Item Value Reference Range Comments Lymphocytes/100 leukocytes (test code = 736-9) 47 % Monocytes/100 ufokedevcd7722-90-69 00:00:00 Test Item Value Reference Range Comments Monocytes/100 leukocytes (test code = 5905-5) 11 % Eosinophils/100 tpellfribv8823-53-28 00:00:00 Test Item Value Reference Range Comments Eosinophils/100 leukocytes (test code = 713-8) 4 % Basophils/100 jiuzghxjph1983-13-24 00:00:00 Test Item Value Reference Range Comments Basophils/100 leukocytes (test code = 706-2) 1 % Qvonexxexsz9632-62-74 00:00:00 Test Item Value Reference Range Comments Neutrophils (test code = 751-8) 1.6 x10E3/uL Pzolcbefboj2730-69-23 00:00:00 Test Item Value Reference Range Comments Lymphocytes (test code = 731-0) 2.0 x10E3/uL Znladxmzy5269-70-36 00:00:00 Test Item Value Reference Range Comments Monocytes (test code = 742-7) 0.5 x10E3/uL Iuvuykvnzma8791-63-65 00:00:00 Test Item Value Reference Range Comments Eosinophils (test code = 711-2) 0.2 x10E3/uL Idqibckjz8488-26-35 00:00:00 Test Item Value Reference Range Comments Basophils (test code = 704-7) 0.0 x10E3/uL Granulocytes.immature/100 ppxvhjvyhu8569-14-91 00:00:00 Test Item Value Reference Range Comments Granulocytes.immature/100 leukocytes (test code = 0 % 75902-3) Granulocytes.jbrwsqyj1279-10-37 00:00:00 Test Item Value Reference Range Comments Granulocytes.immature (test code = 98961-3) 0.0 x10E3/uL Ycetvow4158-36-84 00:00:00 Test Item Value Reference Range Comments Glucose (test code = 2345-7) 88 mg/dL Urea zxtwwxjc8622-38-16 00:00:00 Test Item Value Reference Range Comments Urea nitrogen (test code = 3094-0) 21 mg/dL Pyzahadyah6086-13-64 00:00:00 Test Item Value Reference Range Comments Creatinine (test code = 2160-0) 0.56 mg/dL Glomerular filtration rate/1.73 sq M.predicted.zld0426-07-33 00:00:00 Test Item Value Reference Range Comments Glomerular filtration rate/1.73 sq 98 mL/min/1.73 M.predicted.non (test code = 97457-6) Glomerular filtration rate/1.73 sq M.predicted.tqd6180-79-66 00:00:00 Test Item Value Reference Range Comments Glomerular filtration rate/1.73 sq 113 mL/min/1.73 M.predicted.danielle (test code = 64160-8) Urea nitrogen/Topjtmaove3232-36-66 00:00:00 Test Item Value Reference Range Comments Urea nitrogen/Creatinine (test code = 3097-3) 38 Amdtbm8076-92-83 00:00:00 Test Item Value Reference Range Comments Sodium (test code = 2951-2) 139 mmol/L Sdxobhawj6543-94-37 00:00:00 Test Item Value Reference Range Comments Potassium (test code = 2823-3) 4.8 mmol/L Kwoirgxo3217-31-47 00:00:00 Test Item Value Reference Range Comments Chloride (test code = 2075-0) 100 mmol/L Carbon khnmjyi7702-24-84 00:00:00 Test Item Value Reference Range Comments Carbon dioxide (test code = 2028-9) 23 mmol/L Ccjouab0995-46-47 00:00:00 Test Item Value Reference Range Comments Calcium (test code = 94783-4) 9.0 mg/dL Bjjjkxa6350-36-74 00:00:00 Test Item Value Reference Range Comments Protein (test code = 2885-2) 6.1 g/dL Naiuglg4830-28-36 00:00:00 Test Item Value Reference Range Comments Albumin (test code = 1751-7) 4.0 g/dL Htmjvjoz2594-44-85 00:00:00 Test Item Value Reference Range Comments Globulin (test code = 51721-7) 2.1 g/dL Albumin/Ehaaxgbe3874-68-52 00:00:00 Test Item Value Reference Range Comments Albumin/Globulin (test code = 1759-0) 1.9 Gfvbyvrva1662-44-29 00:00:00 Test Item Value Reference Range Comments Bilirubin (test code = 1975-2) 0.3 mg/dL Alkaline rklbtfrgcis3301-81-80 00:00:00 Test Item Value Reference Range Comments Alkaline phosphatase (test code = 6768-6) 66 IU/L Aspartate uymupcysnbqwyeau3677-34-42 00:00:00 Test Item Value Reference Range Comments Aspartate aminotransferase (test code = 1920-8) 20 IU/L Alanine nsfjramggrinufmo2434-59-20 00:00:00 Test Item Value Reference Range Comments Alanine aminotransferase (test code = 1742-6) 14 IU/L Piycdrywijl0857-37-61 00:00:00 Test Item Value Reference Range Comments Cholesterol (test code = 2093-3) 208 mg/dL Xcvpzvqdmgui0277-53-21 00:00:00 Test Item Value Reference Range Comments Triglyceride (test code = 2571-8) 103 mg/dL Cholesterol.in FLO1221-61-86 00:00:00 Test Item Value Reference Range Comments Cholesterol.in HDL (test code = 2085-9) 96 mg/dL Cholesterol.in JHYB3699-90-97 00:00:00 Test Item Value Reference Range Comments Cholesterol.in VLDL (test code = 63047-3) 21 mg/dL Cholesterol.in LNP3942-51-02 00:00:00 Test Item Value Reference Range Comments Cholesterol.in LDL (test code = 38123-5) 91 mg/dL Thyroxine.xxli2655-62-92 00:00:00 Test Item Value Reference Range Comments Thyroxine.free (test code = 3024-7) 0.50 ng/dL Jafaytssptp1032-60-52 00:00:00 Test Item Value Reference Range Comments Thyrotropin (test code = 07981-4) 0.005 uIU/mL 25-Hydroxyvitamin D2+25-Hydroxyvitamin F11129-26-55 00:00:00 Test Item Value Reference Range Comments 25-Hydroxyvitamin D2+25-Hydroxyvitamin D3 (test 26.3 ng/mL code = 22645-1) Fwuvxctesjfripes9537-56-73 00:00:00 Test Item Value Reference Range Comments Triiodothyronine (test code = 3053-6) 126 ng/dL Grtpmclde4467-92-01 00:00:00 Test Item Value Reference Range Comments Magnesium (test code = 66873-4) 1.9 mg/dL Assessments Condition Name Status Diagnosis Date Treating Clinici an Menopausal and postmenopausal disorders Active 09:49:44 Atrial flutter Active Persistent atrial fibrillation Active Atrial flutter Active Persistent atrial fibrillation Active Persistent atrial fibrillation Active Atrial flutter Active Encounters Start End Encounter Admission Attending Care Care Encounter Date/Time Date/Time Type Type Clinicians Facility Department ID 2019-12-25 2019-12-25 Appointment; CRISTIN Garcia CETW [id number] 15:15:00 15:32:38 Cele Garcia MD|[facility] 2019-10-18 2019-10-18 Mariann Hemphill Wesley Olson [id number] 00:00:00 00:00:00 Giorgi [facility] Medical [id number] MD: [address] [place] [address], Ph. 2019-10-01 2019-10-01 Outpatient [facility], Office [facility] awaresc hed 00:00:00 00:00:00 GYPSY, Pham ramírez [facility] vasile Corrigan lwOriginal MessageRev iewedthyro idfunction testsagain BothTSHand K5dxlgvsFs btainedpro lactinleve ltoruleou. 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 [id number] 2019-09-25 Outpatient [facility] [place] annualm zeke 00:00:00 00:00:00 Allaudrey Olson [facility], [facility] colonscree l1798rzkex r17ydzpwzn uivcros921 13ryicjl3f earcoastal imagingbmd 4.201909252019-09-17 2019-09-17 Outpatient [facility] [place] Medicat ion 00:00:00 00:00:00 Ally [place] Renewal.20 [facility] [id number] RHEA Corrigan 2019-08-26 2019-08-26 Outpatient Nae, Office [place] pctocli rick 00:00:00 00:00:00 Pham BETANCUR requesting [facility], refillfor3 RHEA 0daytocvse iofrxlioth geaqubk35t cgherannua lpeissched 20elw.20192019-07-20 2019-07-20 Outpatient [facility] [place] Medic[facility] ion 00:00:00 00:00:00 Arony [place] Renewal.20 [facility] [id number] RHEA Corrigan 2019-06-21 2019-06-21 Outpatient [facility] [place] Medic[facility] ion 00:00:00 00:00:00 Ally [place] Renewal.20 [facility] [id number] RHEA Corrigan 2018-12-19 2018-12-19 Appointment; CRISTIN Garcia [facility] [id number] 12:00:00 12:00:00 Cele Garcia MD|FACC|RS 2018-11-20 2018-11-20 Outpatient [facility] [place] Medic[facility] 00:00:00 00:00:00 Arony [place] Renewal[facility]20 [facility] [id number] RHEA Corrigan 2018-08-23 2018-08-23 Outpatient [facility] [place] Medic[facility] ion 00:00:00 00:00:00 Ally [place] Renewal.20 [facility] [id number] RHEA Corrigan 2018-07-11 2018-07-11 Appointment; [facility] [id number] 934 14:45:00 14:45:00 Velasquez Cevallos ANP-Cj 2018-07-11 2018-07-11 [place]patient [facility] [place] PTISREQ UES 00:00:00 00:00:00 Ally [place] PEGGYEVOTH [facility] YROXINHELEN [facility] RYAN Corrigan NESPTOCVSE IRP.[id number] 2018-06-29 2018-06-29 Appointment; [facility] [id number] 11:00:00 11:00:00 Carolee Kovacs NP 2018-06-21 2018-06-21 Appointment; [facility] [id number] 11:00:00 11:00:00 Amanda Keyes MD 2018-06-13 2018-06-13 Outpatient Office [facility] annualp ebr 00:00:00 00:00:00 Ally [place] [facility] bsc[facility]ons[facility] [place] gcs6368mhg kej98gqova mammogram3 926nuhvup6 yearcoasta limaging s9547gbl.2 [id number] 2018-06-08 2018-06-08 [facility]patient [facility] [place] Medic[facility] ion 00:00:00 00:00:00 Ally [place] Renewal.20 Family [id number] Shekhar, RHEA 2018-04-17 2018-04-17 [place]patient [facility] [place] Medic[facility] ion 00:00:00 00:00:00 Ally [place] Renewal.20 [facility] [id number] Medicine, [place] 2018-04-14 2018-04-14 [place]patient [facility] [place] Medic[facility] ion 00:00:00 00:00:00 Arony [place] fromPracti Family ceMate.201 Medicine, [id number] PA 2018-03-25 2018-03-25 [place]patient [facility] [place] Medic[facility] ion 00:00:00 00:00:00 Ally [place] Renewal.20 [facility] [id number] Medicine, [place] 2018-01-18 2018-01-18 [place]patient [facility] [place] Medic[facility] ion 00:00:00 00:00:00 Ally [place] Renewal.20 [facility] [id number] Medicine [place] 2017-10-21 2017-10-21 [place]patient [facility] [place] Medic[facility] 00:00:00 00:00:00 Ally [place] Renewal.20 [facility] [id number] Shekhar PA 2017-07-22 2017-07-22 [place]patient [facility] [place] Medic[facility] ion 00:00:00 00:00:00 Arony [place] Renewal.20 [facility] [id number] MedicineRHEA 2017-05-22 2017-05-22 Outpatient Office [facility] LABSLFT .20 00:00:00 00:00:00 Pham Olson [id number] [facility] Shekhar, RHEA 2017-04-24 2017-04-24 Outpatient Office [facility] Medicat ion 00:00:00 00:00:00 Arony [place] Renewal.20 [facility] [id number] RHEA Corrigan 2017-04-17 2017-04-17 Outpatient Office [facility] annualp emma 00:00:00 00:00:00 Pham Olson dfastingla Family bsrequesti Medicine ngmedicati RHEA onrefillsf orthyroidm irhoseyr96 016normalc oastalimag avmqei0624 colonoscop d0692kc.20 [id number] 3835-01-25 2017-03-30 Outpatient Office [facility] PTMADEP EAP 00:00:00 00:00:00 Pham Olson [id number] Family REQUESTRXT Medicine, OLASTTOAPP RHEA TRPLEVOTYR LUGRI80DJC ANDLIOTHYR VENXP91PZB OCVSEI.201 [id number] 2017-03-14 2017-03-14 Outpatient Office [facility] Medicat ion 00:00:00 00:00:00 Pham [place] Renewal.20 [facility] [id number] RHEA Corrigan 2016-12-02 2016-12-02 Outpatient Office [facility] Medicat ion 00:00:00 00:00:00 Pham [place] Renewal.20 [facility] [id number] RHEA Corrigan 2015-11-19 2015-11-19 Outpatient Office [facility] Medicat ion 00:00:00 00:00:00 Pham Olson fromPracti Family ceMate.201 Medicine, [address] [place] 2015-11-17 2015-11-17 Outpatient Office [facility] wantsto dis 00:00:00 00:00:00 Pham Olson cussdecrea Family seofmedica Medicinemoonondmarquita WILKERSON .[id number] 2015-11-12 2015-11-12 Outpatient Office [facility] annualp viviane 00:00:00 00:00:00 Pham Olson complaints Family voicedrequ Medicine, estingmedi PA cationrefi lllevothyr oxine.2015 0908 2015-10-22 2015-10-22 [place] [place] [facility] 00:00:00 00:00:00 Ally [place] Renewal.20 Family [id number] Medicine, RHEA 2015-07-27 2015-07-27 [place]patient [facility] [place] Medicat ion 00:00:00 00:00:00 Arony [place] Renewal.20 Family [id number] RHEA Corrigan 2015-01-01 2015-01-01 Outpatient Office [place] Medicat ion 00:00:00 00:00:00 Pham [place] fromPracti Family ceMate.201 Medicine, [address] RHEA 2014-12-31 2014-12-31 Outpatient Office [place] labslip idc 00:00:00 00:00:00 Pham Olson fhv06rdjss [facility] baggme9r5a Medicine, itamindmag RHEA nesium.201 [id number] 2014-12-29 2014-12-29 Outpatient Office [place] herefor estrella 00:00:00 00:00:00 Pham Olson etandgreet [facility], [place] epast.2014 1026 Plan of Treatment Planned Activity Planned Date Details Comments Future Scheduled Test [code = ] Future Scheduled Test [code = ] Future Scheduled Test [code = ] Future Scheduled Test [code = ] Future Scheduled Test [code = ] Future Scheduled Test [code = ] Future Scheduled Test [code = ] Future Scheduled Test [code = ] Future Scheduled Test [code = ] Future Scheduled Test [code = ] Future Scheduled Test [code = ] Future Scheduled Test [code = ] Future Scheduled Test [code = ] Future Scheduled Test [code = ] Future Scheduled Test [code = ] Future Scheduled Test [code = ] Future Scheduled Test [code = ] Future Scheduled Test [code = ] Future Scheduled Test [code = ] Future Scheduled Test [code = ] Future Scheduled Test [code = ] Future Scheduled Test [code = ] Future Scheduled Test [code = ] Future Scheduled Test [code = ] Future Scheduled Test [code = ] Future Scheduled Test [code = ] Future Scheduled Test [code = ] Future Scheduled Test [code = ] Future Scheduled Test [code = ] Future Scheduled Test [code = ] Future Scheduled Test [code = ] Future Scheduled Test [code = ] Future Scheduled Test [code = ] Future Scheduled Test [code = ] Future Scheduled Test [code = ] Future Scheduled Test [code = ] Future Scheduled Test [code = ] Future Scheduled Test [code = ] Future Scheduled Test [code = ] Social History Smoking Status Start Date Stop Date Ex-smoker (finding) Unknown If Ever Smoked Vital Signs Vital Name Observation Time Observation Value Comments Height 2019-10-18 00:00:00 63.5 [in_i] BMI (Body Mass Index) 2019-10-18 00:00:00 24.5 kg/m2 Body Weight 2019-10-18 00:00:00 140.5 [lb_av] Systolic blood pressure 2019-12-25 15:14:00 126 mm[Hg] Loca tion: LUE; Position: Sittin g Diastolic blood pressure 2019-12-25 15:14:00 72 mm[Hg] Loc ation: LUE; Position: Sittin g Body height 2019-12-25 15:14:00 62 [in_us] Weight 2019-12-25 15:14:00 135 [lb_av] Body mass index (BMI) 2019-12-25 15:14:00 24.69 kg/m2 [Ratio] Heart Rate 2019-12-25 15:14:00 66 /min Height 2019-09-25 00:00:00 63.25 [in_us] Weight Measured 2019-09-25 00:00:00 135.00 [lb_av] BMI (Body Mass Index) 2019-09-25 00:00:00 23.72 kg/m2 BP Systolic 2019-09-25 00:00:00 131 mm[Hg] BP Diastolic 2019-09-25 00:00:00 76 mm[Hg] Heart Rate 2019-09-25 00:00:00 81 /min Height 2018-06-13 00:00:00 63.25 [in_us] Weight Measured 2018-06-13 00:00:00 130.00 [lb_av] BMI (Body Mass Index) 2018-06-13 00:00:00 22.84 kg/m2 BP Systolic 2018-06-13 00:00:00 111 mm[Hg] BP Diastolic 2018-06-13 00:00:00 75 mm[Hg] Heart Rate 2018-06-13 00:00:00 60 /min Height 2017-04-17 00:00:00 63.25 [in_us] Weight Measured 2017-04-17 00:00:00 131.00 [lb_av] BMI (Body Mass Index) 2017-04-17 00:00:00 23.02 kg/m2 BP Systolic 2017-04-17 00:00:00 120 mm[Hg] BP Diastolic 2017-04-17 00:00:00 84 mm[Hg] Heart Rate 2017-04-17 00:00:00 74 /min Weight Measured 2015-11-17 00:00:00 136.00 [lb_av] BP Systolic 2015-11-17 00:00:00 131 mm[Hg] BP Diastolic 2015-11-17 00:00:00 79 mm[Hg] Heart Rate 2015-11-17 00:00:00 66 /min Height 2015-11-12 00:00:00 63.25 [in_us] Weight Measured 2015-11-12 00:00:00 136.00 [lb_av] BMI (Body Mass Index) 2015-11-12 00:00:00 23.90 kg/m2 BP Systolic 2015-11-12 00:00:00 122 mm[Hg] BP Diastolic 2015-11-12 00:00:00 76 mm[Hg] Heart Rate 2015-11-12 00:00:00 67 /min Weight Measured 2014-12-29 00:00:00 128.00 [lb_av] BP Systolic 2014-12-29 00:00:00 129 mm[Hg] BP Diastolic 2014-12-29 00:00:00 72 mm[Hg] Heart Rate 2014-12-29 00:00:00 56 /min Hospital Discharge Instructions NameDatesDetailsInstructions not documented1. Menopausal and postmenopausal disorders bone density Discussion Note: None recorded. Patient educational handouts: No information available."
== END 2020-01-15 08:37 | disposition home or self-care (01) ==
LOC: SC 06:28
PROVIDERS: ATTEND Ophthalmology
DX: H25.11 Age-related nuclear cataract, right eye (principal); Z98.42 Cataract extraction status, left eye; Z87.891 Personal history of nicotine dependence; E03.9 Hypothyroidism, unspecified; Z79.899 Other long term (current) drug therapy; I48.91 Unspecified atrial fibrillation
CPT/HCPCS: 66984; V2788; J2250; J3490 ×2; A9270; J0171; J3010; J2405